=== PATIENT | male | born 1950 | race Caucasian/White ===

== ENCOUNTER → 2020-11-25 | Outpatient (CLI) | payer BC ==
[~2020-11-25] MED LIST: COVID-19 VACCINE (PFIZER)/PF 30 MCG/0.3 ML VIAL IM ONE; EPINEPHRINE INJ/PF 1 MG/1 ML AMPULE IM PRN
== END ==
LOC: EMPHEALTH 08:04
PROVIDERS: ATTEND Internal Medicine
DX: Z23 Encounter for immunization (principal)
CPT/HCPCS: 91300

== ENCOUNTER → 2020-12-16 | Outpatient (CLI) | payer BC ==
--- OUTSIDE RECORDS SUMMARY | 2020-12-16 08:33 | XMS REPORT ---
:1950 Author Organization [facility] Address [facility] [address] [place] [address] Care Team Providers Name Role Phone Unavailable Unavailable Unavailable Allergies, Adverse Reactions, Alerts This patient has no known allergies or adverse reactions. Medications Ordered Filled Start Stop Current Ordering Indication Dosage Frequency Signature Comments Components Medication Medication Date Date Medication? Clinician (SIG) Name Name Percocet 5 No 2 Q4H Percocet 5 mg-325 mg mg-325 mg tablet Take tablet 2 tablets Take 2 every 4 tablets hours by every 4 oral route hours by as directed oral route for 5 days. as directed for 5 days. [place] 5 No 1 Q8H [place] 5 mg-325 mg mg-325 mg tablet Take tablet 1 tablet Take 1 every 8 tablet hours by every 8 oral route hours by for 5 days. oral route for 5 days. ibuprofen No 1 TID ibuprofen 800 mg 800 mg tablet Take tablet 1 tablet 3 Take 1 times a day tablet 3 by oral times a route for day by 30 days. oral route for 30 days. tramadol 50 No 1 Q8H tramadol mg tablet 50 mg Take 1 tablet tablet Take 1 every 8 tablet hours by every 8 oral route hours by for 5 days. oral route for 5 days. Problems Condition Condition Condition Status Onset Resolution Last Treatin g Comments Name Details Category Date Date Treatment Clinician Date Fracture of Fracture of Problem Active olecranon Olecranon 06-28 00:00: 00 Procedures Procedure Date / Time Performed Performing Clinician Venkat caban XR, elbow 2020-09-09 00:00:00 XR, elbow 2020-08-11 00:00:00 XR, elbow 2020-07-08 00:00:00 Open Treatment of Ulnar Fracture, 2020-07-06 00:00:00 Proximal End (Surg) XR, elbow 2020-06-28 00:00:00 CT, elbow, w/o contrast 2020-06-28 00:00:00 Knee Surgery 1983-11-26 00:00:00 Results This patient has no known results. Assessments Condition Name Status Diagnosis Date Treating Clinici an Fracture of olecranon Active 2020-09-07 14:36:31 Fracture of olecranon Active 2020-08-11 07:59:04 Fracture of olecranon Active 2020-07-14 08:21:35 Fracture of olecranon Active 2020-07-08 14:03:01 Fracture of olecranon Active 2020-06-30 11:11:11 Pain in elbow Active 2020-06-30 11:11:11 Fracture of olecranon Active 2020-06-28 11:03:39 Pain in elbow Active 2020-06-28 10:40:35 Encounters Start End Encounter Admission Attending Care Care Encounter Date/Time Date/Time Type Type Clinicians Facility Department ID 2020-09-09 2020-09-09 [facility] [id number] 00:00:00 00:00:00 MD Franny: Sarah manuel. , P.A. [id number] [address] [address], Ph. 2020-08-11 2020-08-11 Rebeca Mace [facility] [id number] 00:00:00 00:00:00 JESSIE Lara: Sarah manuel. , P.A. [id number] [address] [address], Ph. 2020-07-14 2020-07-14 Rebeca Mace [facility] [id number] 00:00:00 00:00:00 JESSIE Lara: Sarah manuel. , P.A. [id number] [address] [address], Ph. 2020-07-08 2020-07-08 Rebeca Mace [facility] [id number] 00:00:00 00:00:00 JESSIE Lara: Sarah manuel. , P.A. [id number] [address] [phone], Ph. 2020-07-01 2020-07-01 [id number] 00:00:00 00:00:00 MD Franny: Ray manuel , P.A. [id number] [address] [address], Ph. 2020-06-28 2020-06-28 Eric Del Rosario [facility] 9 [id number] 00:00:00 00:00:00 mar Drummond P.A. , P.A. [id number] MD: [address] [address], Ph. Immunizations Ordered Immunization Filled Immunization Date Status Commen ts Refusal Reason Name Name influenza, 2020-08-26 Completed injectable, 00:00:00 quadrivalent Social History Smoking Status Start Date Stop Date Heavy Tobacco Smoker Vital Signs Vital Name Observation Time Observation Value Comments Height 2020-09-09 00:00:00 72 [in_i] BMI (Body Mass Index) 2020-09-09 00:00:00 24.7 kg/m2 Body Weight 2020-09-09 00:00:00 182 [lb_av] Height 2020-08-11 00:00:00 72 [in_i] BMI (Body Mass Index) 2020-08-11 00:00:00 25.1 kg/m2 Body Weight 2020-08-11 00:00:00 185 [lb_av] Height 2020-07-14 00:00:00 72 [in_i] BMI (Body Mass Index) 2020-07-14 00:00:00 25.8 kg/m2 Body Weight 2020-07-14 00:00:00 190 [lb_av] Height 2020-07-08 00:00:00 72 [in_i] BMI (Body Mass Index) 2020-07-08 00:00:00 25.8 kg/m2 Body Weight 2020-07-08 00:00:00 190 [lb_av] Height 2020-07-01 00:00:00 72 [in_i] BMI (Body Mass Index) 2020-07-01 00:00:00 25.8 kg/m2 Body Weight 2020-07-01 00:00:00 190 [lb_av] Height 2020-06-28 00:00:00 72 [in_i] BMI (Body Mass Index) 2020-06-28 00:00:00 26.4 kg/m2 Body Weight 2020-06-28 00:00:00 195 [lb_av] Hospital Discharge Instructions 1. Fracture of olecranon CT, elbow, w/o contrast - Please provide patient with a disk of MRI andpush through [facility]. 2. 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
== END ==
LOC: EMPHEALTH 08:23
PROVIDERS: ATTEND Internal Medicine
DX: Z23 Encounter for immunization (principal)
CPT/HCPCS: 91300